=== PATIENT | male | born 1985 | race Two or more races ===

== ENCOUNTER 2019-02-16 07:19 | Emergency (ER) | payer BC, MEDICAID ==
[~2019-02-16] VITALS: Ht 172.7 cm; Wt 117.9 kg
[~2019-02-16 07:19] MED LIST: RANITIDINE HCL150 MG ORAL
[2019-02-16 07:43] VITALS: BP 148/92
[2019-02-16] MEDS ORDERED: Ketorolac 60mg Inj IM ONE (09:00)
--- NOTE | 2019-02-16 09:15 | Emergency Room Report ---
History of Present Illness General Chief Complaint: Flu Like Symptoms Source: Patient Present Illness HPI Patient presents with complaints of cough and congestion over the past 2 days Also has noticed crusting and discharge from both eyes Sore throat and body aches Denies any vomiting or diarrhea denies any posterior neck pain or photophobia denies any recent travel no obvious documented fevers however he does feel warm off and on Allergies: Coded Allergies: No Known Allergies (Unverified , 05/11/14) Patient History Past Medical History: see triage record Reviewed Nursing Documentation: PMH: Agreed; PSxH: Agreed Nursing Documentation-PMH Past Medical History: No History, Except For Hx Cardiac Problems: No Hx Hypertension: Yes Hx Pacemaker: No Hx Asthma: No Hx COPD: No Hx Diabetes: No Hx Gastrointestinal Problems: Yes - GERD Hx Dialysis: No History Of Psychiatric Problem: No Hx Neurological Problems: No Hx Seizures: No Review of Systems All Other Systems: negative except mentioned in HPI Physical Exam Vital Signs Date Time Temp Pulse Resp B/P (MAP) Pulse Ox O2 Delivery O2 Flow Rate FiO2 02/16/19 07:27 97.9 101 16 148/92 (110) 94 Room Air Sp02 EP Interpretation: reviewed, normal General Appearance: no apparent distress Head: normocephalic, atraumatic Eyes: bilateral eye PERRL, bilateral eye EOMI, bilateral eye other - Bilateral crusting noted ENT: hearing grossly normal, EOM grossly intact, pharyngeal erythema Neck: supple, no meningismus Respiratory: no respiratory distress, no retraction, no accessory muscle use, crackles - bilaterally Cardiovascular #1: regular rate, rhythm Gastrointestinal: non tender, soft Genitourinary: no CVA tenderness Musculoskeletal: normal inspection Neurologic: alert Psychiatric: normal inspection Skin: no rash Lymphatic: no adenopathy Medical Decision Making Diagnostic Impression: Primary Impression: Influenza-like symptoms Additional Impression: Pharyngitis ER Course Given the history and presentation multiple differentials and consideration including but not limited to pneumonia ,flu,, pharyngitis Patient had x-ray imaging done does not show any obvious acute process patient also showing signs of conjunctivitis Given the pharyngeal exam patient was provided with antibiotics also symptoms of flu Patient be treated conservatively as outpatient process and return with any changes or concerns Chest X-Ray Diagnostic Results Chest X-Ray Diagnostic Results : Chest X-Ray Ordered: Yes # of Views/Limited/Complete: 1 View Indication: Shortness of Breath EP Interpretation: Yes Interpretation: no consolidation, no effusion, no pneumothorax Impression: No acute disease Electronically Signed by: Ruma Patricio DO Last Vital Signs Date Time Temp Pulse Resp B/P (MAP) Pulse Ox O2 Delivery O2 Flow Rate FiO2 02/16/19 07:43 97.9 91 16 148/92 94 Room Air Status: improved Disposition: HOME, SELF-CARE Condition: Improved Scripts Ibuprofen* (MOTRIN*) 600 Mg Tablet 600 MG ORAL Q8H PRN for For Pain, #20 TAB 0 Refills Prov: Ruma Patricio DO 02/16/19 Dextromethorphan Hb/Doxylamine (Robitussin Nighttime Cough Dm) 237 Ml Liquid 10 ML PO QHS for 5 Days, ML Prov: Ruma Patricio DO 02/16/19 Amoxicillin/Potassium Clav 875-125* (AUGMENTIN 875-125 TABLET*) 1 Each Tablet 1 TAB ORAL TWICE A DAY, #14 TAB Prov: Ruma Patricio DO 02/16/19 Oseltamivir Phosphate (Tamiflu) 75 Mg Capsule 75 MG ORAL TWICE A DAY for 5 Days, CAP Prov: Ruma Patricio DO 02/16/19 Referrals: [facility],REFERRING (PCP) Additional Instructions: Patient is provided with the discharge instructions notified to follow up with primary doctor in the next 2-3 days otherwise return to the er with any worsening symptoms. Please note that this report is being documented using [employer] technology. This can lead to erroneous entry secondary to incorrect interpretation by the dictating instrument. Ruma Patricio DO Feb 16, 2019 09:15
[2019-02-16] MEDS ORDERED: TAMIFLU75 MG ORAL (09:37)
[2019-02-16] MEDS ORDERED: AUGMENTIN 875-1 EAC1 ORAL (09:37)
[2019-02-16] MEDS ORDERED: ROBITUSSIN NIG237 M1 PO (09:37)
[2019-02-16] MEDS ORDERED: IBUPROFEN600 MG ORAL (09:37)
[2019-02-16 09:44] VITALS: BP 136/84
--- NOTE | 2019-02-16 11:55 | Diagnostic Imaging Report ---
Indication: Cough Comparison: None A single view chest radiograph was obtained. Findings: The heart is enlarged. Lungs are clear but hypoinflated. Bones are unremarkable. No pleural effusion seen. IMPRESSION: Cardiomegaly. No acute findings
== END 2019-02-16 09:46 | disposition home or self-care (01) ==
LOC: EMR 08:30
DX: J11.1 Influenza due to unidentified influenza virus with other respiratory manifestations (principal); I10 Essential (primary) hypertension; K21.9 Gastro-esophageal reflux disease without esophagitis
CPT/HCPCS: 71045; 96372; Z7502; 99283